=== PATIENT | male | born 1975 | race Caucasian/White ===

== ENCOUNTER 2020-10-06 14:46 | Emergency (ER) | payer BC, SELFPAY ==
--- NOTE | 2020-10-06 15:02 | ED.GENADULT ---
HPI - General Adult General Chief complaint: Eye Problems Stated complaint: redness right eye Time Seen by Provider: 10/06/20 15:27 Source: patient Mode of arrival: ambulatory Limitations: no limitations History of Present Illness HPI narrative: 45-year-old male patient presents to the [facility] with complaints of right eye redness. Patient states he slept in his contacts last night and states that this morning he had some trouble getting his contacts out and noticed some redness to the eye as well as concern continues to have a little bit of pain. Patient states he is having difficulty seeing out of the eye but that usually due to the fact that he does not have his contact in. Patient denies any drainage, fevers, body aches or chills. Related Data Home Medications Medication Instructions Recorded Confirmed aspirin [Adult Aspirin EC Low 81 mg PO DAILY 10/06/20 10/06/20 Strength] metoprolol succinate [Toprol XL] 100 mg PO DAILY 10/06/20 10/06/20 quetiapine [Seroquel] 150 mg PO HS 10/06/20 10/06/20 Allergies Allergy/AdvReac Type Severity Reaction Status Date / Time No Known Allergies Allergy Verified 10/06/20 15:16 Review of Systems Review of Systems: Narrative: CONSTITUTIONAL: Denies fever, chills, or sweats. EYES: Denies visual changes, positive right eye redness and pain, denies discharge. ENT: Denies rhinorrhea, congestion, sore throat, or otalgia. CARDIOVASCULAR: Denies chest pain, palpitations, or edema. RESPIRATORY: Denies cough or dyspnea. GASTROINTESTINAL: Denies abdominal pain, nausea, vomiting, or diarrhea. GENITOURINARY: Denies dysuria or hematuria. SKIN: Denies rash or itching. MUSCULOSKELETAL: Denies back pain, joint pain, or myalgia. NEUROLOGIC: Denies headache, numbness, or weakness. PSYCHIATRIC: Denies anxiety or depression. PMFSH Social History Social History Gender identity (if verbalized by the patient): Male Comments At the time of my signature I agree with nursing past medical history, surgical, social, and family history. There is no relevant family history pertinent to the presenting complaint. Exam Narrative: Exam Narrative: GENERAL: Well-appearing, well-nourished, and in no acute distress. HEAD: Normocephalic, atraumatic. EYES: PERRLA and EOM intact without limitation or complaint of pain, no periorbital soft tissue swelling ,no erythema, warmth or tenderness noted, no obvious deformity. No crusting or swelling.no tearing or draining.No photophobia. No nystagmus No FB or lesion on lid eversion. Corneas do appear to have a very mild abrasion noted to the 3:00 area that runs over the pupil noted during Paulino lamp exam, no obvious FB or hyphens/hypopyon. Patient does have a subconjunctival hemorrhage noted to the right lower corner of the eye. Lids and lashes clear. ENT: Nares clear, no rhinorrhea or epistaxis. Mucous membranes moist. NECK: Supple. No lymphadenopathy CHEST: Clear to auscultation. No respiratory distress. HEART: Regular rate and rhythm. No murmur heard. Normal peripheral pulses. ABDOMEN: Soft, nontender, nondistended, normal active bowel sounds. EXTREMITIES: Normal range of motion. No edema. SKIN: Warm, dry, no rash. NEURO: No focal deficits. Alert and oriented x3. Course Vital Signs Vital signs: Vital Signs Temperature 37.2 C 10/06/20 15:10 Pulse Rate 75 10/06/20 15:10 Respiratory Rate 16 10/06/20 15:10 Blood Pressure 121/93 H 10/06/20 15:10 Pulse Oximetry 98 10/06/20 15:10 Temperature 37.2 C 10/06/20 15:10 Pulse Rate 75 10/06/20 15:10 Respiratory Rate 16 10/06/20 15:10 Blood Pressure 121/93 H 10/06/20 15:10 Pulse Oximetry 98 10/06/20 15:10 Vital signs reviewed. The patient has been informed that they may have pre-hypertension or Hypertension based on a BP reading in the department. I recommend that the patient call the primary care provider listed on their discharge instruct
[2020-10-06 15:10] VITALS: BP 121/93; PULSE 75; RESP 16; TEMP 37.2; O2SAT 98
== END 2020-10-06 15:43 | disposition home or self-care (01) ==
PROVIDERS: Emergency Provider Nurse Practitioner Family
DX: S05.01XA Injury of conjunctiva and corneal abrasion without foreign body, right eye, initial encounter (principal); X58.XXXA Exposure to other specified factors, initial encounter; H11.31 Conjunctival hemorrhage, right eye; Z79.82 Long term (current) use of aspirin; I10 Essential (primary) hypertension
CPT/HCPCS: 99203; A9270; G0463